=== PATIENT | male | born 1990 | race Caucasian/White ===

== ENCOUNTER 2017-03-06 14:34 | Emergency (ER) | payer OTHER ==
[~2017-03-06] VITALS: Ht 182.9 cm; Wt 75.7 kg
[2017-03-06] MEDS ORDERED: Morphine Sulfate 4mg/ml Inj IVP ONE (15:15)
[2017-03-06 15:27] VITALS: BP 131/74
[2017-03-06 16:32] LABS: ALANINE AMINOTRANSFERASE 23 U/L (3-41); ALBUMIN/GLOBULIN RATIO 1.8 (1.0-2.7); ANION GAP 14 (5-15); ASPARTATE AMINO TRANSFERASE 14 U/L (5-40); CALCIUM 9.7 mg/dL (8.6-10.2); CARBON DIOXIDE 28 mEQ/L (20-30); CHLORIDE 97 mEQ/L (98-107); CREATININE 0.7 mg/dL (0.7-1.2); GLOMERULAR FILTRATION RATE > 60 mL/min (>60); HEMOLYSIS 17; POTASSIUM 4.3 mEQ/L (3.4-4.9); SODIUM 139 mEQ/L (135-145); TOTAL PROTEIN 7.1 g/dL (6.6-8.7)
--- NOTE | 2017-03-06 16:35 | Emergency Room Report ---
History of Present Illness General Chief Complaint: Abdominal Pain Source: Patient Present Illness HPI This patient states that he thinks he has an umbilical hernia. The patient states that he developed abdominal pain over his umbilicus while he was rock climbing. He states that he had a tearing sensation in his abdomen. He states that this initially occurred about 3 weeks ago. He states that the pain has been ongoing. However, he states over the past week the pain is more severe and become intolerable. He denies nausea or vomiting. He denies constipation or diarrhea. He denies fever or chills. He has no other complaints. Allergies: Coded Allergies: No Known Allergies (Unverified , 03/06/17) Patient History Past Medical History: none Past Surgical History: none Social History: Reports: alcohol use, drug use - THC, Denies: smoking Reviewed Nursing Documentation: PMH: Agreed, PSxH: Agreed Nursing Documentation-PMH Past Medical History: No Stated History Review of Systems All Other Systems: negative except mentioned in HPI Physical Exam Vital Signs Date Time Temp Pulse Resp B/P Pulse Ox O2 Delivery O2 Flow Rate FiO2 03/06/17 14:47 98.4 90 20 144/85 99 Room Air Sp02 EP Interpretation: reviewed, normal General Appearance: no apparent distress, alert, GCS 15, non-toxic Head: normocephalic, atraumatic Eyes: bilateral eye PERRL, bilateral eye normal inspection ENT: hearing grossly normal, normal pharynx, no angioedema, normal voice Neck: full range of motion, supple/symm/no masses Respiratory: chest non-tender, lungs clear, normal breath sounds, speaking full sentences Cardiovascular #1: regular rate, rhythm, no edema Gastrointestinal: normal bowel sounds, soft, non-distended, no guarding, no rebound, tenderness - +TTP wesly-umbilical and over the umbilicus. Rectal: deferred Musculoskeletal: back normal, gait/station normal, normal range of motion, non- tender Neurologic: alert, oriented x3, responsive, motor strength/tone normal, sensory intact, speech normal Psychiatric: judgement/insight normal, memory normal, mood/affect normal, no suicidal/homicidal ideation Skin: normal color, no rash, warm/dry, well hydrated Medical Decision Making Diagnostic Impression: Primary Impression: Abdominal wall pain ER Course The patient is exquisitely tender to palpation at the umbilicus. Possibly this patient has a incarcerated umbilical hernia or possibly a muscle tear. Regardless, the patient is exquisitely tender and has had worsening symptoms, so I felt I should obtain a CT of the abdomen and pelvis which showed no significant findings. Specifically, there is no evidence of umbilical hernia. Laboratory workup is unremarkable. I suspect this patient's pain is related to an abdominal muscle strain. Regardless, I did not identify an emergency medical condition. I will give the patient ibuprofen and Tylenol. The patient was instructed to followup closely with his primary care physician. The patient was given return precautions and followup instructions. Labs Test 03/06/17 14:53 03/06/17 15:15 White Blood Count 8.2 K/UL (4.8-10.8) Red Blood Count 4.70 M/UL (4.70-6.10) Hemoglobin 15.3 G/DL (14.2-18.0) Hematocrit 43.1 % (42.0-52.0) Mean Corpuscular Volume 92 FL (80-99) Mean Corpuscular Hemoglobin 32.5 PG (27.0-31.0) Mean Corpuscular Hemoglobin Concent 35.5 G/DL (32.0-36.0) Red Cell Distribution Width 11.9 % (11.6-14.8) Platelet Count 206 K/UL (150-450) Mean Platelet Volume 7.0 FL (6.5-10.1) Neutrophils (%) (Auto) 56.7 % (45.0-75.0) Lymphocytes (%) (Auto) 35.0 % (20.0-45.0) Monocytes (%) (Auto) 6.0 % (1.0-10.0) Eosinophils (%) (Auto) 1.5 % (0.0-3.0) Basophils (%) (Auto) 0.8 % (0.0-2.0) Sodium Level 139 mEQ/L (135-145) Potassium Level 4.3 mEQ/L (3.4-4.9) Chloride Level 97 mEQ/L (98-107) Carbon Dioxide Level 28 mEQ/L (20-30) Anion Gap 14 (5-15) Blood Urea Nitrogen 12 mg/dL (7-23) Creatinine 0.7 mg/dL (0.7-1.2) Estimat Glomerular Filtration Rate > 60 mL/min (>60) Glucose Level 102 mg/dL (74-106) Calcium Level 9.7 mg/dL (8.6-10.2) Total Bilirubin 0.9 mg/dL (0.0-1.2) Aspartate Amino Transf (AST/SGOT) 14 U/L (5-40) Alanine Aminotransferase (ALT/SGPT) 23 U/L (3-41) Alkaline Phosphatase 64 U/L (40-129) Total Protein 7.1 g/dL (6.6-8.7) Albumin 4.6 g/dL (3.5-5.2) Globulin 2.5 g/dL Albumin/Globulin Ratio 1.8 (1.0-2.7) CT/MRI/US Diagnostic Results CT/MRI/US Diagnostic Results : Imaging Test Ordered: CT abd/pelvis Impression No acute findings. Normal umbilical region. See official report. Last Vital Signs Date Time Temp Pulse Resp B/P Pulse Ox O2 Delivery O2 Flow Rate FiO2 03/06/17 15:27 81 16 131/74 100 Room Air 03/06/17 14:47 98.4 Status: improved Disposition: HOME, SELF-CARE Condition: Improved RANJEET HILL D.O. March 06, 2017 16:35
[2017-03-06 16:39] VITALS: BP 130/70
[2017-03-06 16:41] LABS: BASOPHILS % (AUTO) 0.8 % (0.0-2.0); EOSINOPHILS % (AUTO) 1.5 % (0.0-3.0); MEAN CORPUSCULAR HEMOGLOBIN 32.5 PG (27.0-31.0); MEAN CORPUSCULAR HGB CONC 35.5 G/DL (32.0-36.0); MEAN CORPUSCULAR VOLUME 92 FL (80-99); NEUTROPHILS % (AUTO) 56.7 % (45.0-75.0); PLATELET COUNT 206 K/UL (150-450); RED CELL DISTRIBUTION WIDTH 11.9 % (11.6-14.8); WHITE BLOOD COUNT 8.2 K/UL (4.8-10.8)
[2017-03-06 18:17] VITALS: BP 97/50
[2017-03-06] MEDS ORDERED: IBUPROFEN600 MG ORAL (18:46)
[2017-03-06] MEDS ORDERED: ACETAMINOPHEN500 M3 ORAL (18:46)
[2017-03-06 19:05] LABS: APPEARANCE,URINE CLEAR; KETONES,URINE NEGATIVE (NEGATIVE); LEUKOCYTE ESTERASE ,URINE NEGATIVE (NEGATIVE); NITRITE,URINE NEGATIVE (NEGATIVE); PH,URINE 8 (4.5-8.0); PROTEIN,URINE NEGATIVE (NEGATIVE); UROBILINOGEN,URINE NORMAL MG/DL (0.0-1.0)
[2017-03-06 19:08] VITALS: BP 138/87
--- NOTE | 2017-03-07 10:37 | Diagnostic Imaging Report ---
Indication: Abdominal pain Technique: CT of the abdomen and pelvis utilizing automated exposure control with intravenous and oral contrast. Venous scanning performed. CT dose: Total DLP 890 mGycm; CTDI vol 15.7 mGy Comparison: None Findings: There is mild dependent atelectasis. The liver, adrenal glands, spleen and pancreas are unremarkable. No CT evident gallstones are identified. There is a punctate 2 mm nonobstructive calculus in the lower pole of the right kidney best seen coronally. The small bowel loops are normal in caliber. The appendix is normal. There is no free intraperitoneal fluid or air. Bladder is grossly unremarkable. The abdominal aorta is normal in caliber. There is no bulky adenopathy. The osseous structures demonstrate no acute abnormality. Impression: Normal appendix. Punctate 2 mm nonobstructive calculus in the lower pole of the right kidney. No hydronephrosis. The CT scanner at [facility] is accredited by the [employer] and the scans are performed using protocols designed to limit radiation exposure to as low as reasonably achievable to attain images of sufficient resolution adequate for diagnostic evaluation.
== END 2017-03-06 19:12 | disposition home or self-care (01) ==
LOC: EMR 15:20
DX: R10.9 Unspecified abdominal pain (principal); N20.0 Calculus of kidney
CPT/HCPCS: 36415; 74177; 80053; 81003; 85025; 96374; 96375; 99284; J2270; Q9967